=== PATIENT | male | born 1945 | race Caucasian/White ===

== ENCOUNTER → 2022-08-17 10:26 | Outpatient (CLI) | payer OTHER, SELFPAY ==
--- NOTE | 2022-08-17 | DI.MG.S_ITS ---
MALE BILATERAL DIGITAL DIAGNOSTIC MAMMOGRAM 3D/2D: 08/17/2022 CLINICAL: Right breast lump. No prior exams were available for comparison. There is gynecomastia in both breasts that correlates with clinical concern. Fibroglandular-appearing tissue is seen in both breasts, greater on the right. IMPRESSION: BENIGN There is no mammographic evidence of malignancy. There is gynecomastia in both breasts, greater on the right, corresponding to clinical tenderness and palpable abnormality. Dr. Gonzalez discussed with the patient by telephone regarding causes and clinical findings of gynecomastia versus male breast cancer. Patient was advised to closely followup clinically with his doctor. If there is persistent clinical concern or worsening symptoms, reimaging can be obtained to reassess. No biopsy is indicated today. This exam was interpreted at Station ID: [id number]. NOTE: For mammograms, a report in lay terms will be sent to the patient. Approximately 15% of breast malignancies will not be visualized mammographically. In the management of a palpable breast mass, a negative mammogram must not discourage biopsy of a clinically suspicious lesion. Electronically Signed By: Levy Gonzalez M.D. lc/:08/17/2022 12:51:34 letter sent: Clinical Evaluation ACR BI-RADS Category 2: Benign Finding(s) 3342F
== END ==
PROVIDERS: Referring Provider Internal Medicine; Visit Provider Internal Medicine
DX: D48.61 Neoplasm of uncertain behavior of right breast (principal); N62 Hypertrophy of breast
CPT/HCPCS: 77066; G0279